=== PATIENT | male | born 1965 | race Hispanic/Latino ===

== ENCOUNTER 2021-05-20 14:44 | Inpatient (IN) | payer MEDICAID, OTHER ==
[~2021-05-20] VITALS: Ht 170.2 cm; Wt 110.9 kg
[2021-05-20 17:56] LABS: BASOPHILS % (AUTO) 0.8 % (0.0-5.0); HEMATOCRIT 43.9 % (42-54); LYMPHOCYTES % (AUTO) 13.1 % (21.0-51.0); MEAN CORPUSCULAR HEMOGLOBIN 29.7 pg (27.0-33.0); MEAN CORPUSCULAR HGB CONC 33.5 g/dL (32.0-36.0); MEAN CORPUSCULAR VOLUME 88.7 fL (79-99); MONOCYTES % (AUTO) 5.6 % (3.0-13.0); NEUTROPHILS % (AUTO) 76.1 % (40.0-77.0); PLATELET COUNT (AUTO) 215 K/uL (130-400); RED BLOOD CELL COUNT(AUTO) 4.95 MIL/uL (4.50-6.20); RED CELL DISTRIBUTION WIDTH 12.7 % (11.0-15.5); WHITE BLOOD COUNT (AUTO) 11.8 K/uL (4.8-10.8)
[2021-05-20 18:09] LABS: INR 0.96 (0.85-1.15); PROTHROMBIN TIME 10.5 SEC (9.6-11.6)
[2021-05-20 18:14] LABS: CARBON DIOXIDE 35 mmol/L (21-32); CHLORIDE 100 mmol/L (101-111); GLOMERULAR FILTR. RATE CALC 37 mL/min (>60); GLUCOSE,RANDOM 122 mg/dL (70-105); POTASSIUM 3.2 mmol/L (3.5-5.1); SODIUM SERUM 142 mmol/L (136-145); UREA NITROGEN, BLOOD 21 mg/dL (7-18)
[2021-05-20 18:18] LABS: ALANINE AMINOTRANSFERASE 31 U/L (12-78); ALBUMIN 3.9 g/dL (3.5-5.0); ALCOHOL, BLOOD < 3 mg/dL (0-10); ASPARTATE AMINOTRANSFERASE 22 U/L (10-37); BILIRUBIN,TOTAL 0.3 mg/dL (0.2-1.0); CREATINE KINASE, TOTAL 208 U/L (21-232); SALICYLATE 3.3 mg/dL (2.8-20.0); TOTAL PROTEIN, SERUM 7.5 g/dL (6.0-8.3)
[2021-05-20 18:19] LABS: ACETAMINOPHEN < 1 mcg/mL (10-29); B-TYPE NATRIURETIC PEPTIDE 205 pg/mL (0-100)
[2021-05-20 18:48] LABS: APPEARANCE,URINE Clear (CLEAR); BILIRUBIN,URINE Negative (NEGATIVE); COLOR,URINE Yellow (YELLOW); GLUCOSE, URINE (UA) Negative (NEGATIVE); KETONES,URINE Negative (NEGATIVE); LEUKOCYTE ESTERASE ,URINE Negative (NEGATIVE); NITRATE,URINE Negative (NEGATIVE); OCCULT BLOOD,URINE Trace (NEGATIVE); PROTEIN,URINE POS 2+ mg/dL (NEGATIVE); UROBILINOGEN,URINE 0.2 mg/dL (0.2-1.0)
[2021-05-20 18:55] LABS: AMPHET/METH SCREEN,URINE NEGATIVE (NEGATIVE); BARBITURATE SCREEN, URINE NEGATIVE (NEGATIVE); BENZODIAZEPINES SCREEN,URINE NEGATIVE (NEGATIVE); CANNABINOID SCREEN,URINE NEGATIVE (NEGATIVE); COCAINE SCREEN,URINE NEGATIVE (NEGATIVE); OPIATE SCREEN,URINE NEGATIVE (NEGATIVE); PHENCYCLIDINE SCREEN,URINE NEGATIVE (NEGATIVE)
[2021-05-20 19:09] LABS: BACTERIA,URINE Rare /HPF (None Seen); MUCUS,URINE Few LPF (None Seen); SQUAMOUS EPITHELIAL CELL,UR Few /HPF (0-2)
[2021-05-20] MEDS ORDERED: AZITHROMYCIN 500MG+NS 250ML IV STA (20:09)
[2021-05-20] MEDS ORDERED: CEFTRIAXONE 1G VIAL 1 GM in 0.9%NACL 100ML 100 ML IV STA (20:09)
[2021-05-20] MEDS ORDERED: POTASSIUM CHLORIDE 20MEQ/100ML 100 ML IV PRN (21:00)
[2021-05-20] MEDS ORDERED: LIDOCAINE HCL-MPF 1% 2ML VIAL IV PRN ×2 (21:00→22:30)
[2021-05-20] MEDS ORDERED: POTASSIUM CHLORIDE 10% ELIXIR 20 MEQ/15 ML UDCUP PO PRN ×2 (21:00→22:30)
[2021-05-20] MEDS ORDERED: CEFTRIAXONE 1G VIAL IVP SCH (21:00)
[2021-05-20] MEDS ORDERED: KCL 20 MEQ ERTAB PO PRN (21:00)
[2021-05-20] MEDS ORDERED: AZITHROMYCIN 500MG+NS 250ML 250 ML IV ONE (21:17)
[2021-05-20] MEDS ORDERED: ONDANSETRON 4MG INJ IV PRN (21:30)
[2021-05-20] MEDS ORDERED: NITROGLYCERIN 0.4 MG SL TAB SL PRN (21:30)
[2021-05-20] MEDS ORDERED: LACTULOSE 20 GM/30 ML UDCUP PO PRN (21:30)
[2021-05-20] MEDS ORDERED: 0.9%NACL 1000ML 1,000 ML IV SCH ×2 (21:30)
[2021-05-20] MEDS: AZITHROMYCIN 500MG+NS 250ML IV SCH (22:00)
[2021-05-20] MEDS ORDERED: ALBUTEROL INHALER 90MCG/INH IH PRN (22:00)
[2021-05-20] MEDS: 0.9% NACL 250ML IVPB SCH (22:01)
[2021-05-20] MEDS: KCL 20 MEQ ERTAB PO PRN (22:16)
[2021-05-20] MEDS ORDERED: CEFTRIAXONE 1G VIAL 1 GM in 0.9%NACL 50ML 50 ML IV SCH (22:30)
[2021-05-20] MEDS ORDERED: POTASSIUM CHLORIDE 10MEQ/100ML 100 ML IV PRN (22:30)
[2021-05-20 22:35] LABS: HEMOGLOBIN A1C 6.2 % (4.0-6.0)
[2021-05-20 22:37] LABS: CRP QUANTITATIVE 23.3 mg/L (0.00-9.0)
[2021-05-20] MEDS ORDERED: SODIUM CHLORIDE 3% FOR INHALATION 4 ML/AMP VIAL.NEB IH ONE (23:12)
[2021-05-20] MEDS ORDERED: TRAZ-185 PO (23:17)
[2021-05-20] MEDS ORDERED: HYDR25TA PO (23:17)
[2021-05-20] MEDS ORDERED: CARV25TA PO (23:17)
[2021-05-20] MEDS ORDERED: LISI20TA24 PO (23:17)
[2021-05-21] VITALS (7 sets, daily range): BP systolic 146–187; BP diastolic 73–99
[2021-05-21] MEDS ORDERED: HYDRALAZINE 20MG/ML VIAL IV ONE ×2 (01:00→20:00)
[2021-05-21] MEDS ORDERED: FUROSEMIDE 40MG VIAL IV ONE (04:30)
[2021-05-21 04:50] LABS: BASOPHILS % (AUTO) 0.6 % (0.0-5.0); EOSINOPHILS % (AUTO) 4.3 % (0.0-8.0); HEMATOCRIT 42.1 % (42-54); LYMPHOCYTES % (AUTO) 15.4 % (21.0-51.0); MEAN CORPUSCULAR HEMOGLOBIN 29.7 pg (27.0-33.0); MEAN CORPUSCULAR HGB CONC 33.5 g/dL (32.0-36.0); MEAN CORPUSCULAR VOLUME 88.8 fL (79-99); MONOCYTES % (AUTO) 6.2 % (3.0-13.0); NEUTROPHILS % (AUTO) 72.9 % (40.0-77.0); PLATELET COUNT (AUTO) 185 K/uL (130-400); RED BLOOD CELL COUNT(AUTO) 4.74 MIL/uL (4.50-6.20); RED CELL DISTRIBUTION WIDTH 12.7 % (11.0-15.5); WHITE BLOOD COUNT (AUTO) 12.7 K/uL (4.8-10.8)
[2021-05-21 05:11] LABS: ALBUMIN 3.6 g/dL (3.5-5.0); BILIRUBIN,TOTAL 0.3 mg/dL (0.2-1.0); CREATININE 1.7 mg/dL (0.5-1.5); MAGNESIUM 2.1 mg/dL (1.80-2.40); POTASSIUM 3.3 mmol/L (3.5-5.1); TOTAL PROTEIN, SERUM 7.5 g/dL (6.0-8.3)
[2021-05-21] MEDS ORDERED: SODIUM CHLORIDE 3% FOR INHALATION 4 ML/AMP VIAL.NEB IH ONE ×3 (06:29→21:37)
[2021-05-21] MEDS ORDERED: HYDRALAZINE 20MG/ML VIAL ONE (06:45)
[2021-05-21] MEDS ORDERED: FUROSEMIDE 40MG VIAL ONE (06:46)
[2021-05-21] MEDS: HYDROCHLOROTHIAZIDE 25 MG TABLET PO SCH (09:48)
[2021-05-21] MEDS: LISINOPRIL 20 MG TABLET PO SCH ×2 (09:48→20:51)
[2021-05-21] MEDS: FAMOTIDINE 20MG TAB PO SCH (09:48)
[2021-05-21] MEDS: HEPARIN 5,000 UNIT VIAL SQ SCH ×3 (09:49→21:09)
[2021-05-21] MEDS: FUROSEMIDE 20MG VIAL IV SCH (16:49)
[2021-05-21] MEDS: KCL 20 MEQ ERTAB PO PRN (16:52)
[2021-05-21] MEDS: ACETAMINOPHEN 325 MG TAB PO PRN (17:57)
[2021-05-21] MEDS: AZITHROMYCIN 500MG+NS 250ML IV SCH (20:58)
[2021-05-21] MEDS: 0.9% NACL 250ML IVPB SCH (20:58)
[2021-05-21] MEDS: CEFTRIAXONE 1G VIAL IVP SCH (20:58)
[2021-05-21] MEDS ORDERED: CEFTRIAXONE 1G VIAL 1 GM in 0.9%NACL 100ML 100 ML IV SCH (21:00)
[2021-05-21] MEDS ORDERED: CEFTRIAXONE 1G VIAL IV SCH (21:00)
[2021-05-22] MEDS: FUROSEMIDE 20MG VIAL IV SCH ×2 (03:52→16:24)
[2021-05-22] MEDS: ACETAMINOPHEN 325 MG TAB PO PRN (03:53)
[2021-05-22 04:10] VITALS: BP 183/103
[2021-05-22 05:19] LABS: APPEARANCE,URINE Clear (CLEAR); BILIRUBIN,URINE Negative (NEGATIVE); COLOR,URINE Yellow (YELLOW); GLUCOSE, URINE (UA) Negative (NEGATIVE); KETONES,URINE Negative (NEGATIVE); LEUKOCYTE ESTERASE ,URINE Negative (NEGATIVE); NITRATE,URINE Negative (NEGATIVE); OCCULT BLOOD,URINE Negative (NEGATIVE); PH,URINE 5.5 (5.0-8.0); PROTEIN,URINE POS 2+ mg/dL (NEGATIVE); UROBILINOGEN,URINE 0.2 mg/dL (0.2-1.0)
[2021-05-22 05:53] LABS: BACTERIA,URINE None Seen /HPF (None Seen); RBC,URINE 0-1 /HPF (0-1); SQUAMOUS EPITHELIAL CELL,UR Few /HPF (0-2); WBC,URINE 0-1 /HPF (0-1)
[2021-05-22 05:54] LABS: HYALINE CASTS, URINE 0-1 /LPF (0-1 /LPF)
[2021-05-22 07:37] LABS: BASOPHILS % (AUTO) 0.8 % (0.0-5.0); EOSINOPHILS % (AUTO) 4.7 % (0.0-8.0); HEMATOCRIT 41.5 % (42-54); LYMPHOCYTES % (AUTO) 13.8 % (21.0-51.0); MEAN CORPUSCULAR HEMOGLOBIN 29.8 pg (27.0-33.0); MEAN CORPUSCULAR HGB CONC 34.2 g/dL (32.0-36.0); MONOCYTES % (AUTO) 6.9 % (3.0-13.0); NEUTROPHILS % (AUTO) 73.3 % (40.0-77.0); PLATELET COUNT (AUTO) 198 K/uL (130-400); RED BLOOD CELL COUNT(AUTO) 4.77 MIL/uL (4.50-6.20); WHITE BLOOD COUNT (AUTO) 11.6 K/uL (4.8-10.8)
[2021-05-22 07:52] LABS: ABG BASE EXCESS 3.8 mmol/L (-2.0-3.0); ABG HCO3 27.3 mmol/L (21.0-28.0); ABG OXYGEN SATURATION 96.5 % (95.0-99.0); ABG PCO2 37 mmHg (35-48)
[2021-05-22 07:57] LABS: CREATININE 2.2 mg/dL (0.5-1.5); POTASSIUM 3.4 mmol/L (3.5-5.1)
[2021-05-22 08:00] VITALS: BP 175/73
[2021-05-22] MEDS: LISINOPRIL 20 MG TABLET PO SCH ×2 (09:31→21:01)
[2021-05-22] MEDS: HYDROCHLOROTHIAZIDE 25 MG TABLET PO SCH (09:31)
[2021-05-22] MEDS: FAMOTIDINE 20MG TAB PO SCH (09:31)
[2021-05-22] MEDS: HEPARIN 5,000 UNIT VIAL SQ SCH ×3 (09:37→21:42)
[2021-05-22 12:00] VITALS: BP 166/91
[2021-05-22 16:00] VITALS: BP 159/82
[2021-05-22] MEDS: KCL 20 MEQ ERTAB PO PRN (16:26)
[2021-05-22 20:33] VITALS: BP 161/92
[2021-05-22] MEDS: 0.9% NACL 250ML IVPB SCH (21:01)
[2021-05-22] MEDS: CEFTRIAXONE 1G VIAL IVP SCH (21:01)
[2021-05-22] MEDS: AZITHROMYCIN 500MG+NS 250ML IV SCH (21:01)
[2021-05-22] MEDS: TRAZODONE HCL 50 MG TAB PO SCH (21:01)
[2021-05-23] MEDS ORDERED: HYDRALAZINE 20MG/ML VIAL IV ONE (00:30)
[2021-05-23 00:40] VITALS: BP 181/119
[2021-05-23 00:42] VITALS: BP 181/119
[2021-05-23] MEDS: ACETAMINOPHEN 325 MG TAB PO PRN ×3 (02:01→21:19)
[2021-05-23] MEDS: FUROSEMIDE 20MG VIAL IV SCH ×2 (04:10→16:57)
[2021-05-23 04:14] VITALS: BP 179/101
[2021-05-23 05:30] LABS: BASOPHILS % (AUTO) 0.6 % (0.0-5.0); HEMATOCRIT 44.7 % (42-54); MEAN CORPUSCULAR HEMOGLOBIN 29.4 pg (27.0-33.0); MEAN CORPUSCULAR HGB CONC 33.3 g/dL (32.0-36.0); MEAN CORPUSCULAR VOLUME 88.2 fL (79-99); MONOCYTES % (AUTO) 6.2 % (3.0-13.0); NEUTROPHILS % (AUTO) 75.8 % (40.0-77.0); PLATELET COUNT (AUTO) 167 K/uL (130-400); RED BLOOD CELL COUNT(AUTO) 5.07 MIL/uL (4.50-6.20); RED CELL DISTRIBUTION WIDTH 13.3 % (11.0-15.5); WHITE BLOOD COUNT (AUTO) 11.2 K/uL (4.8-10.8)
[2021-05-23 05:50] LABS: ALBUMIN 3.8 g/dL (3.5-5.0); BILIRUBIN,TOTAL 0.6 mg/dL (0.2-1.0); CREATININE 2.1 mg/dL (0.5-1.5); MAGNESIUM 2.3 mg/dL (1.80-2.40); PHOSPHORUS 3.6 mg/dL (2.5-4.9); TOTAL PROTEIN, SERUM 7.5 g/dL (6.0-8.3)
[2021-05-23 05:53] LABS: POTASSIUM 2.6 mmol/L (3.5-5.1)
[2021-05-23 05:57] LABS: B-TYPE NATRIURETIC PEPTIDE 47 pg/mL (0-100)
[2021-05-23] MEDS: KCL 20 MEQ ERTAB PO PRN ×4 (06:12→21:17)
[2021-05-23 08:00] VITALS: BP 179/102
[2021-05-23] MEDS: LISINOPRIL 20 MG TABLET PO SCH ×2 (10:28→21:17)
[2021-05-23] MEDS: FAMOTIDINE 20MG TAB PO SCH (10:28)
[2021-05-23] MEDS: HYDROCHLOROTHIAZIDE 25 MG TABLET PO SCH (10:28)
[2021-05-23] MEDS: HYDRALAZINE 25MG TABLET PO SCH ×3 (10:29→21:18)
[2021-05-23] MEDS: HEPARIN 5,000 UNIT VIAL SQ SCH ×3 (10:30→21:28)
[2021-05-23 16:00] VITALS: BP 194/103
[2021-05-23] MEDS ORDERED: CARVEDILOL 25 MG TABLET PO ONE (19:28)
[2021-05-23 20:46] VITALS: BP 189/104
[2021-05-23] MEDS: CEFTRIAXONE 1G VIAL IVP SCH (21:16)
[2021-05-23] MEDS: CARVEDILOL 25 MG TABLET PO SCH (21:17)
[2021-05-23] MEDS: TRAZODONE HCL 50 MG TAB PO SCH (21:18)
[2021-05-23] MEDS: 0.9% NACL 250ML IVPB SCH (21:32)
[2021-05-23] MEDS: AZITHROMYCIN 500MG+NS 250ML IV SCH (21:32)
[2021-05-23 23:46] LABS: COLLECTION PERIOD,URINE 24 HR; TOTAL VOLUME 24HRS,URINE 1330 mL
[2021-05-24 00:02] LABS: TPROTEIN TIMED,URINE 56 mg/dL; TPROTEIN U,24HR CALC 745 mg/24HR (0-165)
[2021-05-24] MEDS: KCL 20 MEQ ERTAB PO PRN ×2 (00:44→04:30)
[2021-05-24 01:14] VITALS: BP 166/90
[2021-05-24 04:03] VITALS: BP 167/81
[2021-05-24] MEDS: FUROSEMIDE 20MG VIAL IV SCH ×2 (04:26→16:58)
[2021-05-24 05:29] LABS: HEMATOCRIT 42.2 % (42-54); MEAN CORPUSCULAR HEMOGLOBIN 29.6 pg (27.0-33.0); MEAN CORPUSCULAR HGB CONC 33.2 g/dL (32.0-36.0); MEAN CORPUSCULAR VOLUME 89.2 fL (79-99); RED BLOOD CELL COUNT(AUTO) 4.73 MIL/uL (4.50-6.20); RED CELL DISTRIBUTION WIDTH 13.2 % (11.0-15.5); WHITE BLOOD COUNT (AUTO) 10.2 K/uL (4.8-10.8)
[2021-05-24 05:35] LABS: CREATININE 1.9 mg/dL (0.5-1.5); POTASSIUM 3.1 mmol/L (3.5-5.1)
[2021-05-24 08:00] VITALS: BP 179/95
[2021-05-24] MEDS: HYDROCHLOROTHIAZIDE 25 MG TABLET PO SCH (09:41)
[2021-05-24] MEDS: LISINOPRIL 20 MG TABLET PO SCH ×2 (09:41→20:16)
[2021-05-24] MEDS: HYDRALAZINE 25MG TABLET PO SCH ×3 (09:41→20:16)
[2021-05-24] MEDS: CARVEDILOL 25 MG TABLET PO SCH ×2 (09:42→20:15)
[2021-05-24] MEDS: FAMOTIDINE 20MG TAB PO SCH (09:48)
[2021-05-24] MEDS: HEPARIN 5,000 UNIT VIAL SQ SCH ×3 (09:50→20:30)
[2021-05-24 12:00] VITALS: BP_SYST 164; BP_SYST 183; BP_DIAS 102; BP_DIAS 109
[2021-05-24] MEDS ORDERED: METOPROLOL TARTRATE 50 MG TAB ONE (12:28)
[2021-05-24] MEDS ORDERED: HYDRALAZINE 25MG TABLET ONE (12:29)
[2021-05-24 16:00] VITALS: BP 175/103
[2021-05-24] MEDS: ACETAMINOPHEN 325 MG TAB PO PRN (16:58)
[2021-05-24] MEDS ORDERED: LORAZEPAM 0.5 MG TABLET PO PRN (18:30)
[2021-05-24 20:00] VITALS: BP 166/83
[2021-05-24] MEDS: TRAZODONE HCL 50 MG TAB PO SCH (20:13)
[2021-05-24] MEDS: CEFTRIAXONE 1G VIAL IVP SCH (20:13)
[2021-05-24] MEDS: 0.9% NACL 250ML IVPB SCH (21:44)
[2021-05-24] MEDS: AZITHROMYCIN 500MG+NS 250ML IV SCH (21:45)
[2021-05-25] VITALS: BP 174/91
[2021-05-25] MEDS: ACETAMINOPHEN 325 MG TAB PO PRN (00:06)
[2021-05-25] MEDS: KCL 20 MEQ ERTAB PO PRN ×3 (00:07→05:35)
[2021-05-25 04:00] VITALS: BP 168/88
[2021-05-25] MEDS: FUROSEMIDE 20MG VIAL IV SCH (04:38)
[2021-05-25 04:52] LABS: HEMATOCRIT 43.7 % (42-54); MEAN CORPUSCULAR HEMOGLOBIN 29.6 pg (27.0-33.0); MEAN CORPUSCULAR HGB CONC 33.4 g/dL (32.0-36.0); MEAN CORPUSCULAR VOLUME 88.5 fL (79-99); RED BLOOD CELL COUNT(AUTO) 4.94 MIL/uL (4.50-6.20); RED CELL DISTRIBUTION WIDTH 13.2 % (11.0-15.5); WHITE BLOOD COUNT (AUTO) 10.1 K/uL (4.8-10.8)
[2021-05-25 05:02] LABS: CREATININE 1.7 mg/dL (0.5-1.5); POTASSIUM 3.2 mmol/L (3.5-5.1)
[2021-05-25] MEDS: LISINOPRIL 20 MG TABLET PO SCH (08:36)
[2021-05-25] MEDS: HYDROCHLOROTHIAZIDE 25 MG TABLET PO SCH (08:36)
[2021-05-25] MEDS: FAMOTIDINE 20MG TAB PO SCH (08:36)
[2021-05-25 08:37] VITALS: BP 168/58
[2021-05-25] MEDS: CARVEDILOL 25 MG TABLET PO SCH (08:37)
[2021-05-25] MEDS: HYDRALAZINE 25MG TABLET PO SCH (08:37)
[2021-05-25] MEDS: HEPARIN 5,000 UNIT VIAL SQ SCH (09:12)
[2021-05-25] MEDS ORDERED: FURO20TA6 PO (09:39)
[2021-05-25] MEDS ORDERED: HYDR25 PO (09:39)
== END 2021-05-25 12:45 | disposition home or self-care (01) | DRG 177 ==
LOC: EDH 14:44 → EDHIP 14:45 → 3BH 22:51
PROVIDERS: ADMIT Internal Medicine; ATTEND Internal Medicine
PROC: 5A09357 Assistance with Respiratory Ventilation, Less than 24 Consecutive Hours, Continuous Positive Airway Pressure (ICD-10-PCS; principal; 2021-05-21)
PROC: 5A09357 Assistance with Respiratory Ventilation, Less than 24 Consecutive Hours, Continuous Positive Airway Pressure (ICD-10-PCS; 2021-05-22)
PROC: 5A09357 Assistance with Respiratory Ventilation, Less than 24 Consecutive Hours, Continuous Positive Airway Pressure (ICD-10-PCS; 2021-05-23)
PROC: 5A09357 Assistance with Respiratory Ventilation, Less than 24 Consecutive Hours, Continuous Positive Airway Pressure (ICD-10-PCS; 2021-05-24)
PROC: 5A09357 Assistance with Respiratory Ventilation, Less than 24 Consecutive Hours, Continuous Positive Airway Pressure (ICD-10-PCS; 2021-05-25)
DX: J15.6 Pneumonia due to other Gram-negative bacteria (principal); I50.33 Acute on chronic diastolic (congestive) heart failure; Z68.41 Body mass index [BMI] 40.0-44.9, adult; N17.9 Acute kidney failure, unspecified; I11.0 Hypertensive heart disease with heart failure; E66.01 Morbid (severe) obesity due to excess calories; E87.6 Hypokalemia; Z20.822 Contact with and (suspected) exposure to COVID-19; F41.9 Anxiety disorder, unspecified; F20.9 Schizophrenia, unspecified; F31.9 Bipolar disorder, unspecified; G47.00 Insomnia, unspecified; T50.2X5A Adverse effect of carbonic-anhydrase inhibitors, benzothiadiazides and other diuretics, initial encounter; Z85.528 Personal history of other malignant neoplasm of kidney; Z90.5 Acquired absence of kidney; Z87.820 Personal history of traumatic brain injury; Y92.89 Other specified places as the place of occurrence of the external cause; Z79.899 Other long term (current) drug therapy; Z83.3 Family history of diabetes mellitus; Z82.49 Family history of ischemic heart disease and other diseases of the circulatory system; Z82.5 Family history of asthma and other chronic lower respiratory diseases
CPT/HCPCS: 36415; 36600; 71045; 80048; 80053; 80305; 81001; 82435; 82550; 82570; 82803; 82947; 82948; 83036; 83605; 83735; 83874; 83880; 83883; 84100; 84132; 84145; 84156; 84166; 84295; 84484; 85018; 85025; 85027; 85610; 86140; 86325; 86738; 87040; 87449; 87635; 93005; 93306; 93356; 93970; 94640; 94660; 97039; G0378; G0481; J0360; J0456; J0696; J1644; J1940; J7030; J7050

== ENCOUNTER 2021-08-05 21:58 | Emergency (ER) | payer OTHER ==
[~2021-08-05] VITALS: Ht 170.2 cm; Wt 117.9 kg
[~2021-08-05 21:58] MED LIST: CARV25TA PO; FURO20TA6 PO; HYDR25 PO; HYDR25TA PO; LISI20TA24 PO; TRAZ-185 PO
[2021-08-05] MEDS: 0.9%NACL 1000ML 1,000 ML IV ONE ×2 (22:30→23:05)
[2021-08-05 22:49] LABS: BASOPHILS % (AUTO) 0.7 % (0.0-5.0); EOSINOPHILS % (AUTO) 4.5 % (0.0-8.0); HEMATOCRIT 45.5 % (42-54); LYMPHOCYTES % (AUTO) 9.4 % (21.0-51.0); MEAN CORPUSCULAR HEMOGLOBIN 29.7 pg (27.0-33.0); MEAN CORPUSCULAR HGB CONC 34.3 g/dL (32.0-36.0); MEAN CORPUSCULAR VOLUME 86.5 fL (79-99); MONOCYTES % (AUTO) 7.4 % (3.0-13.0); NEUTROPHILS % (AUTO) 77.4 % (40.0-77.0); PLATELET COUNT (AUTO) 225 K/uL (130-400); RED BLOOD CELL COUNT(AUTO) 5.26 MIL/uL (4.50-6.20); RED CELL DISTRIBUTION WIDTH 14.1 % (11.0-15.5); WHITE BLOOD COUNT (AUTO) 16.7 K/uL (4.8-10.8)
[2021-08-05 23:04] LABS: INR 0.99 (0.85-1.15); PROTHROMBIN TIME 10.8 SEC (9.6-11.6)
[2021-08-05 23:06] LABS: CARBON DIOXIDE 28 mmol/L (21-32); CHLORIDE 95 mmol/L (101-111); CREATININE 2.9 mg/dL (0.5-1.5); GLOMERULAR FILTR. RATE CALC 24 mL/min (>60); GLUCOSE,RANDOM 167 mg/dL (70-105); POTASSIUM 3.3 mmol/L (3.5-5.1); SODIUM SERUM 133 mmol/L (136-145); UREA NITROGEN, BLOOD 28 mg/dL (7-18)
[2021-08-05 23:18] LABS: ALANINE AMINOTRANSFERASE 32 U/L (12-78); ALBUMIN 3.8 g/dL (3.5-5.0); ALCOHOL, BLOOD < 3 mg/dL (0-10); ASPARTATE AMINOTRANSFERASE 22 U/L (10-37); BILIRUBIN,TOTAL 0.7 mg/dL (0.2-1.0); THYROID STIMULATING HORMONE 1.41 uIU/mL (0.36-3.74); TOTAL PROTEIN, SERUM 8.5 g/dL (6.0-8.3)
[2021-08-05 23:25] LABS: B-TYPE NATRIURETIC PEPTIDE 71 pg/mL (0-100)
[2021-08-06 00:20] LABS: APPEARANCE,URINE Cloudy (CLEAR); BILIRUBIN,URINE Negative (NEGATIVE); COLOR,URINE Dark Yellow (YELLOW); GLUCOSE, URINE (UA) Negative (NEGATIVE); KETONES,URINE Trace mg/dL (NEGATIVE); LEUKOCYTE ESTERASE ,URINE Negative (NEGATIVE); NITRATE,URINE Negative (NEGATIVE); OCCULT BLOOD,URINE Moderate (NEGATIVE); PROTEIN,URINE 300 mg/dL (NEGATIVE)
[2021-08-06 00:31] LABS: AMPHET/METH SCREEN,URINE NEGATIVE (NEGATIVE); BARBITURATE SCREEN, URINE NEGATIVE (NEGATIVE); BENZODIAZEPINES SCREEN,URINE NEGATIVE (NEGATIVE); CANNABINOID SCREEN,URINE NEGATIVE (NEGATIVE); COCAINE SCREEN,URINE POSITIVE (NEGATIVE); OPIATE SCREEN,URINE NEGATIVE (NEGATIVE); PHENCYCLIDINE SCREEN,URINE NEGATIVE (NEGATIVE)
[2021-08-06 00:35] LABS: BACTERIA,URINE Moderate /HPF (None Seen); SQUAMOUS EPITHELIAL CELL,UR Moderate /HPF (0-2)
[2021-08-06 00:40] LABS: OTHER CASTS, URINE MIXED CELL CASTS 1+ /LPF (None Seen)
[2021-08-06 02:56] VITALS: BP 161/82
[2021-08-06] MEDS: ACETAMINOPHEN 325 MG TAB ONE ×2 (04:05→04:09)
[2021-08-06] MEDS ORDERED: ACETAMINOPHEN 500 MG TABLET PO ONE (04:30)
== END 2021-08-06 04:21 | disposition short-term general hospital (02) ==
LOC: EDH 21:58
DX: G93.89 Other specified disorders of brain (principal); Z20.822 Contact with and (suspected) exposure to COVID-19; E11.9 Type 2 diabetes mellitus without complications; E78.00 Pure hypercholesterolemia, unspecified; F32.A Depression, unspecified; F41.9 Anxiety disorder, unspecified; I10 Essential (primary) hypertension; Z79.899 Other long term (current) drug therapy; Z85.528 Personal history of other malignant neoplasm of kidney; Z87.820 Personal history of traumatic brain injury; Z90.49 Acquired absence of other specified parts of digestive tract
CPT/HCPCS: 36415; 70450; 71045; 80053; 80305; 81001; 83735; 83880; 84443; 84484; 85025; 85610; 85730; 87088; 87635; 93005; 99285; C9803; J7030